=== PATIENT | male | born 1980 | race Caucasian/White ===

== ENCOUNTER 2018-09-07 12:39 | Outpatient (CLI) | payer OTHER ==
[2018-09-07] MEDS ORDERED: GADOBUTROL 10 MMOL/10 ML VIAL ONE (13:47)
[2018-09-07] MEDS ORDERED: GADOBUTROL 10 MMOL/10 ML VIAL IVP ONE (13:52)
--- NOTE | 2018-09-07 15:46 | MRI Report ---
Reason: HEMANGIOMA OF INTRACRANIAL STRUCTURES Procedure Date: 09/07/2018 Accession Number: [id number] / [id number] Procedure: MRI - Brain W/WO CPT Code: FULL RESULT: EXAM: MRI BRAIN WITHOUT AND WITH CONTRAST EXAM DATE: 09/07/2018 01:55 PM. CLINICAL HISTORY: History of meningioma. COMPARISON: None available. TECHNIQUE: Multiplanar, multisequence T1-weighted and fluid-sensitive MR sequences of the brain were performed. Sequences optimized for routine evaluation. Other: This study was protocoled on site using the institution's protocol.. IV Contrast: 10 mL Gadavist. FINDINGS: The diffusion-weighted images are normal. There is no evidence of acute or subacute cerebral infarction. The corpus callosum is of normal size and configuration. The pituitary and sella are normal. The craniocervical junction is normal. The bilateral parotid spaces exhibit normal signal intensity. The cerebral vascular flow voids are patent. There is a mucous retention cyst at the base of the right and left maxillary sinuses. There is no obstructing pattern of sinus disease. The optic nerves demonstrate symmetric signal intensity and size. There is a lesion exhibiting T2 hyperintensity with central areas of susceptibility demonstrated in the ventral left cerebellar hemisphere measuring 12 x 16 mm (4, 701). The central area of enhancement measures 8 x 8 mm. The overall appearance is suspicious for a brain metastasis versus demyelinating plaque versus primary glioma with small areas of associated hemorrhage versus a cavernoma. If the patient has prior imaging and it becomes available can be used to determine the stability of this finding. The corpus callosum is of normal size and configuration. The pituitary and sella are normal. The craniocervical junction is normal. There is normal enhancement within the deep venous sinuses. IMPRESSION: 1. There is no evidence of acute or subacute cerebral infarction. 2. There is a lesion exhibiting T2 hyperintensity with central areas of susceptibility consistent with old blood products present in the left cerebellar hemisphere and measuring 12 x 16 mm. The central areas of enhancement measure 8 x 8 mm. The differential diagnosis would include a brain metastasis versus demyelinating plaque versus primary glioma versus cavernoma. Recommend correlation. If the patient has had previous imaging and it becomes available, it may be useful to determine stability of this finding. 3. There is no significant white matter disease.
== END 2018-09-07 12:40 | disposition home or self-care (01) ==
LOC: DI 12:39
PROVIDERS: ATTEND Family Medicine
DX: D18.02 Hemangioma of intracranial structures (principal)
CPT/HCPCS: 70553; A9585